=== PATIENT | female | born 1980 | race Caucasian/White ===

== ENCOUNTER 2018-07-27 06:56 | Day surgery (SDC) | payer OTHER ==
[~2018-07-27] VITALS: Ht 167.6 cm; Wt 81.6 kg
[~2018-07-27 06:56] MED LIST: BUPROPION150 M4 PO; CELEBREX200 MG OR; CIPROFLOXACN500 MG PO; DEPO-MEDROL80 MG/ML IM; FLEXERIL10 MG PO; KENALOG-4040 MG/ML IA; KETOROLAC60 MG/2 ML IJ; LORTAB 7.5 PO; MEDDOSEPAK PO; MELATONIN3 MG OR; NAPROSYN500 MG PO; NEXIUM20 M1 PO; NO MEDS; PERCOCET 5/325M1 TAB OR; PHENTERMINE37.5 M1 PO; PRILOSEC40 MG PO; PYRIDIUM200 MG PO; ULTRAM50 MG OR; ZOFRAN ODT4 MG PO
[2018-07-27 08:57] VITALS: BP 105/69
== END 2018-07-27 09:18 | disposition home or self-care (01) | DRG 392 ==
LOC: ENDO 06:56 → ORM 12:00
PROVIDERS: ATTEND Surgery
PROC: 0DJ08ZZ Inspection of Upper Intestinal Tract, Via Natural or Artificial Opening Endoscopic (ICD-10-PCS; principal; 2018-07-27)
DX: R13.10 Dysphagia, unspecified (principal); K44.9 Diaphragmatic hernia without obstruction or gangrene; K22.8 Other specified diseases of esophagus; F32.9 Major depressive disorder, single episode, unspecified; Z87.11 Personal history of peptic ulcer disease

== ENCOUNTER → 2018-08-05 | Outpatient (REF) | payer OTHER | END | disposition home or self-care (01) | DRG 392 | LOC: DI 08:47 | PROVIDERS: ATTEND Surgery | DX: R13.10 Dysphagia, unspecified (principal); K21.9 Gastro-esophageal reflux disease without esophagitis ==

== ENCOUNTER 2019-09-26 18:17 | Emergency (ER) | payer OTHER ==
[~2019-09-26] VITALS: Ht 167.6 cm; Wt 82.0 kg
[2019-09-26] MEDS ORDERED: BAYER ASA325 MG PO (19:30)
[2019-09-26] MEDS ORDERED: CYMBALTA30 MG PO (19:31)
[2019-09-26] MEDS ORDERED: MELOXICAM7.5 MG PO (19:32)
[2019-09-26] MEDS ORDERED: ZYRTEC10 MG PO (19:32)
[2019-09-26] MEDS ORDERED: LORTAB 1010 MG PO (19:32)
[2019-09-26] MEDS ORDERED: TEMAZEPAM30 MG PO (19:32)
[2019-09-26 19:58] LABS: URINE BILIRUBIN - DIPSTICK NEGATIVE (NEGATIVE); URINE BLOOD DIPSTICK NEGATIVE (NEGATIVE); URINE COLOR YELLOW; URINE GLUCOSE - DIPSTICK NEGATIVE (NEGATIVE); URINE KETONE NEGATIVE (NEGATIVE); URINE LEUK ESTERASE NEGATIVE (NEGATIVE); URINE NITRITE - DIPSTICK NEGATIVE (Negative); URINE PROTEIN - DIPSTICK NEGATIVE (NEG-TRACE); URINE SPECIFIC GRAVITY 1.025; URINE UROBILINOGEN - DIPSTICK 0.2 E.U./dL (0.2)
[2019-09-26] MEDS ORDERED: NAPROXEN500 MG PO (20:31)
[2019-09-26 20:40] VITALS: BP 122/80
== END 2019-09-26 20:40 | disposition home or self-care (01) | DRG 605 ==
LOC: ED 18:17
PROVIDERS: Emergency Medicine
DX: S40.022A Contusion of left upper arm, initial encounter (principal); W01.198A Fall on same level from slipping, tripping and stumbling with subsequent striking against other object, initial encounter; Y92.019 Unspecified place in single-family (private) house as the place of occurrence of the external cause; S83.92XA Sprain of unspecified site of left knee, initial encounter; Z96.652 Presence of left artificial knee joint

== ENCOUNTER 2020-08-02 14:55 | Emergency (ER) | payer OTHER ==
[~2020-08-02] VITALS: Ht 167.6 cm; Wt 85.0 kg
[~2020-08-02 14:55] MED LIST changes: +BAYER ASA325 MG PO; +CYMBALTA30 MG PO; +LORTAB 1010 MG PO; +MELOXICAM7.5 MG PO; +NAPROXEN500 MG PO; +TEMAZEPAM30 MG PO; +ZYRTEC10 MG PO
[2020-08-02 18:39] LABS: HEMATOCRIT 42.1 % (37.0-47.0); HEMOGLOBIN 14.1 g/dl (12.0-16.0); IMMATURE GRANULOCYTES 0.3 % (0.0-5.0); MEAN CELL VOLUME 88.3 fL CALC (80.0-100.0); MEAN CORPUSCULAR HGB 29.6 pG CALC (26.0-32.0); MEAN CORPUSCULAR HGB CONC 33.5 g/dL CAL (32.0-36.0); NEUT# 10.3 thou/uL (2.00-7.15); RED BLOOD COUNT 4.77 mill/uL (4.20-5.60)
[2020-08-02 18:50] LABS: ALBUMIN 4.4 g/dL (3.2-5.0); ALKALINE PHOSPHATASE 75 u/l (38-126); ANION GAP 13 (6-22 (CALC)); BILIRUBIN, TOTAL 0.3 mg/dL (0.0-1.4); BUN 8 mg/dL (7-17); BUN/CREATININE RATIO 13 (12-20 (CALC)); CARBON DIOXIDE 27 mmol/l (22-30); CHLORIDE 101 mmol/l (95-108); CREATININE 0.6 mg/dL (0.5-1.0); GFR > 60 ML/MIN (>=60 (CALC)); GFR FOR AFR.AMER. > 60 ML/MIN (>=60 (CALC)); LIPASE 77 u/l (23-300); POTASSIUM 4.3 mmol/l (3.5-5.1); SGOT/AST 31 u/l (14-36); SODIUM 137 mmol/l (137-146); TOTAL PROTEIN 7.5 g/dL (6.3-8.2)
[2020-08-02 19:43] LABS: URINE BILIRUBIN - DIPSTICK NEGATIVE (NEGATIVE); URINE COLOR YELLOW; URINE GLUCOSE - DIPSTICK NEGATIVE (NEGATIVE); URINE KETONE NEGATIVE (NEGATIVE); URINE LEUK ESTERASE NEGATIVE (NEGATIVE); URINE NITRITE - DIPSTICK NEGATIVE (Negative); URINE PH 5.5 (4.5-8.0); URINE PROTEIN - DIPSTICK NEGATIVE (NEG-TRACE); URINE SPECIFIC GRAVITY >=1.030; URINE UROBILINOGEN - DIPSTICK 0.2 E.U./dL (0.2)
[2020-08-02 19:46] LABS: URINE BLOOD DIPSTICK TRACE (NEGATIVE)
[2020-08-02 21:07] VITALS: BP 136/78
== END 2020-08-02 21:07 | disposition left against medical advice (07) | DRG 313 ==
LOC: ED 14:55
PROVIDERS: Family Medicine
DX: R07.9 Chest pain, unspecified (principal); N83.201 Unspecified ovarian cyst, right side; R76.8 Other specified abnormal immunological findings in serum; Z20.828 Contact with and (suspected) exposure to other viral communicable diseases; Z91.19 Patient's noncompliance with other medical treatment and regimen